=== PATIENT | male | born 1950 | race Caucasian/White ===

== ENCOUNTER 2022-01-03 19:51 | Emergency (ER) | payer OTHER, MEDICAID ==
[~2022-01-03] VITALS: Ht 167.6 cm; Wt 68.0 kg
[~2022-01-03 19:51] MED LIST: LISI20TA31 MT; METF-416 MT; METO-385 MT; OMEP20CA14 MT; SIMV-46 MT
[2022-01-03] MEDS ORDERED: SODIUM CHLORIDE 0.9% 1,000 ML IV ONE (21:15)
[2022-01-03 22:11] LABS: CHLORIDE 100 mEq/L (98-107)
[2022-01-03 22:12] LABS: BASOPHILS % 0.6 % (0.0-2.0); EOSINOPHILS % 4.1 % (0.0-5.0); HEMATOCRIT. 30.6 % (42.0-52.0); LYMPHOCYTES % 7.2 % (20.0-50.0); MEAN CORPUSCULAR HEMOGLOBIN 26.9 pg (28.0-32.0); MEAN CORPUSCULAR VOLUME 82.5 fL (80.0-94.0); MEAN PLATELET VOLUME 9.4 fl (7.4-10.4); MONOCYTES % 10.5 % (2.0-8.0); NEUTROPHILS % 77.6 % (40.0-76.0); PLATELET 80 x1000/uL (130-400); RED BLOOD CELL COUNT 3.71 mill/uL (4.7-6.1); RED CELL DISTRIBUTION WIDTH 17.1 % (11.6-14.6)
[2022-01-03 22:19] LABS: INR 1.1; PARTIAL THROMBOPLASTIN TIME 26.3 sec (23.4-31.0); PROTHROMBIN TIME 12.1 sec (9.6-11.0)
[2022-01-03 22:23] LABS: ETHANOL BLOOD < 10 mg/dL
[2022-01-03 23:19] VITALS: BP 128/61
[2022-01-03 23:26] LABS: CLARITY URINE CLEAR (CLEAR); COLOR URINE YELLOW (YELLOW); KETONES URINE TRACE (NEGATIVE); LEUKOCYTE ESTERASE URINE NEGATIVE (NEGATIVE); NITRITE URINE NEGATIVE (NEGATIVE); OCCULT BLOOD URINE NEGATIVE (NEGATIVE); PH URINE 5.5 (4.5-8.0); PROTEIN URINE TRACE (NEGATIVE); SPECIFIC GRAVITY URINE 1.018 (1.005-1.030); UROBILINOGEN URINE 0.2 E.U./dL (0.2-1.0)
[2022-01-04 00:14] LABS: *AMPHETAMINES SCREEN URINE NEGATIVE (NEGATIVE); *BARBITURATES SCREEN URINE NEGATIVE (NEGATIVE); *BENZODIAZEPINES SCREEN URINE NEGATIVE (NEGATIVE); *COCAINE SCREEN URINE NEGATIVE (NEGATIVE); CANNABINOID URINE SCREEN NEGATIVE (NEGATIVE); METHADONE URINE SCREEN NEGATIVE (NEGATIVE); OPIATES URINE SCREEN NEGATIVE (NEGATIVE); PHENCYCLIDINE URINE SCREEN NEGATIVE (NEGATIVE)
== END 2022-01-04 00:27 | disposition home or self-care (01) ==
LOC: ER 19:51
DX: R55 Syncope and collapse (principal); R42 Dizziness and giddiness; E11.9 Type 2 diabetes mellitus without complications; I10 Essential (primary) hypertension; Z98.890 Other specified postprocedural states
CPT/HCPCS: 36415; 70450; 71045; 80053; 80305; 80320; 81003; 83880; 84484; 85025; 85610; 85730; 93005; 96360; 99285; J7030; G0480

== ENCOUNTER 2022-05-22 15:37 | Inpatient (IN) | payer OTHER, MEDICAID ==
[~2022-05-22] VITALS: Ht 172.7 cm; Wt 75.9 kg
[2022-05-22] MEDS ORDERED: LORAZEPAM 2MG/ML CPJ IV ONE (15:45)
[2022-05-22] MEDS ORDERED: MIDAZOLAM HCL 100 MG in DEXT 5% WATER 80 ML IV ONE (16:15)
[2022-05-22] MEDS ORDERED: MIDAZOLAM HCL 100 MG in SODIUM CHLORIDE 0.9% 100 ML IV PRN (16:30)
[2022-05-22 16:37] LABS: BASOPHILS % 0.2 % (0.0-2.0); EOSINOPHILS % 0.6 % (0.0-5.0); HEMATOCRIT. 42.6 % (42.0-52.0); HEMOGLOBIN. 14.1 g/dL (14.0-18.0); LYMPHOCYTES % 10.2 % (20.0-50.0); MEAN CORPUSCULAR HEMOGLOBIN 35.5 pg (28.0-32.0); MEAN CORPUSCULAR VOLUME 107.3 fL (80.0-94.0); MEAN PLATELET VOLUME 11.7 fl (7.4-10.4); PLATELET 108 x1000/uL (130-400); RED BLOOD CELL COUNT 3.98 mill/uL (4.7-6.1); RED CELL DISTRIBUTION WIDTH 15.1 % (11.6-14.6)
[2022-05-22 17:01] LABS: BG BASE EXCESS -13.9 mmol/L (-2.0-2.0); BG CARBOXYHEMOGLOBIN 1.3 % (0.5-1.5); BG DEOXYHEMOGLOBIN 0.6 % (0.0-5.0); BG FRACTION INSPIRED OXYGEN 60; BG METHEMOGLOBIN 0.3 % (0.0-1.5); BG OXYGEN SATURATION 99.4 % (92.0-98.5); BG OXYHEMOGLOBIN 97.8 % (94.0-97.0); BG PCO2 39.7 mmHg (35.0-45.0); BG PH 7.165 (7.350-7.450); BG PO2 217.3 mmHg (75.0-100.0); BG SAMPLE SITE RIGHT RADIAL; BG TOTAL HEMOGLOBIN 14.5 g/dL (12.0-18.0); BG VENT MODE VENT - AC
[2022-05-22] MEDS ORDERED: LABETALOL 5MG/ML SYR 20 MG/4 ML SYRINGE IV ONE (17:45)
[2022-05-22] MEDS ORDERED: SODIUM BICARBONATE 8.4% 1 MEQ/ML 50ML SYR IV ONE ×2 (17:45)
[2022-05-22] MEDS ORDERED: PROPOFOL 10MG/ML 100ML 100 ML IV ONE (17:45)
[2022-05-22 17:57] LABS: CLARITY URINE CLEAR (CLEAR); COLOR URINE YELLOW (YELLOW); KETONES URINE NEGATIVE (NEGATIVE); LEUKOCYTE ESTERASE URINE NEGATIVE (NEGATIVE); NITRITE URINE NEGATIVE (NEGATIVE); OCCULT BLOOD URINE 3+ (NEGATIVE); PH URINE 5.5 (4.5-8.0); PROTEIN URINE 3+ (NEGATIVE); SPECIFIC GRAVITY URINE 1.019 (1.005-1.030); UROBILINOGEN URINE 0.2 E.U./dL (0.2-1.0)
[2022-05-22 18:01] LABS: CHLORIDE 102 mEq/L (98-107)
[2022-05-22 18:14] LABS: BETA HYDROXYBUTYRATE 0.3 mMol/L (0.0-0.3); ETHANOL BLOOD < 10 mg/dL
[2022-05-22] MEDS ORDERED: INSULIN REGULAR (DRIP) 100 UNITS in SODIUM CHLORIDE 0.9% 99 ML IV SCH (18:30)
[2022-05-22] MEDS ORDERED: IPRATROPIUM/ALBUTEROL 0.5-3(2.5)MG/3ML NEB HHN PRN (19:15)
[2022-05-22] MEDS ORDERED: LEVETIRACETAM 500 MG in SODIUM CHLORIDE 0.9% 100 ML IV SCH (19:15)
[2022-05-22] MEDS ORDERED: ONDANSETRON HCL 4MG/2ML INJ IV PRN (19:15)
[2022-05-22] MEDS ORDERED: CEFTRIAXONE 1 G PREMIX 50 ML IV NR (19:15)
[2022-05-22] MEDS ORDERED: DIPHENHYDRAMINE 50MG/ML VIAL IV PRN (19:15)
[2022-05-22] MEDS ORDERED: LORAZEPAM 2MG/ML CPJ IV PRN (19:15)
[2022-05-22 19:24] LABS: *AMPHETAMINES SCREEN URINE NEGATIVE (NEGATIVE); *BARBITURATES SCREEN URINE NEGATIVE (NEGATIVE); *BENZODIAZEPINES SCREEN URINE NEGATIVE (NEGATIVE); *COCAINE SCREEN URINE NEGATIVE (NEGATIVE); CANNABINOID URINE SCREEN NEGATIVE (NEGATIVE); METHADONE URINE SCREEN NEGATIVE (NEGATIVE); OPIATES URINE SCREEN NEGATIVE (NEGATIVE); PHENCYCLIDINE URINE SCREEN NEGATIVE (NEGATIVE)
[2022-05-22] MEDS: SODIUM CHLORIDE 0.9% 1,000 ML IV SCH ×2 (19:37→23:57)
[2022-05-22 19:40] LABS: CHLORIDE 104 mEq/L (98-107)
[2022-05-22] MEDS: LEVETIRACETAM 500MG PREMIX 100 ML IV SCH (21:58)
[2022-05-23] MEDS ORDERED: PROPOFOL 10MG/ML 100ML 100 ML IV SCH (01:15)
[2022-05-23] MEDS: DEXT 5%/0.45% NACL KCL 20MEQ/L 1,000 ML IV SCH ×3 (01:57→08:32)
[2022-05-23] MEDS: SODIUM CHLORIDE 0.9% 1,000 ML IV SCH ×4 (03:15→12:57)
[2022-05-23 05:20] LABS: BASOPHILS % 0.1 % (0.0-2.0); EOSINOPHILS % 1.5 % (0.0-5.0); HEMATOCRIT. 29.9 % (42.0-52.0); HEMOGLOBIN. 10.6 g/dL (14.0-18.0); LYMPHOCYTES % 7.5 % (20.0-50.0); MEAN CORPUSCULAR HEMOGLOBIN 36.1 pg (28.0-32.0); MEAN CORPUSCULAR VOLUME 102.1 fL (80.0-94.0); MEAN PLATELET VOLUME 10.3 fl (7.4-10.4); MONOCYTES % 11.1 % (2.0-8.0); NEUTROPHILS % 79.8 % (40.0-76.0); RED BLOOD CELL COUNT 2.93 mill/uL (4.7-6.1); RED CELL DISTRIBUTION WIDTH 14.1 % (11.6-14.6)
[2022-05-23 05:24] LABS: CHLORIDE 111 mEq/L (98-107)
[2022-05-23] MEDS ORDERED: INSULIN REGULAR 100U/100ML PMX 100 ML IV SCH ×3 (05:45→06:15)
[2022-05-23 05:48] LABS: PLATELET 47 x1000/uL (130-400)
[2022-05-23] MEDS ORDERED: DEXTROSE 50% WATER 50ML SYRINGE IV PRN ×3 (06:00→12:30)
[2022-05-23] MEDS: BLOOD SUGAR DIAGNOSTIC STRIP TEST SCH ×10 (06:46→21:00)
[2022-05-23] MEDS: LEVETIRACETAM 500MG PREMIX 100 ML IV SCH ×2 (08:51→21:00)
[2022-05-23 10:02] LABS: BG BASE EXCESS -0.8 mmol/L (-2.0-2.0); BG CARBOXYHEMOGLOBIN 0.3 % (0.5-1.5); BG DEOXYHEMOGLOBIN 0.9 % (0.0-5.0); BG FRACTION INSPIRED OXYGEN 60; BG HCO3 ACT 23.4 mmol/L (22.0-26.0); BG METHEMOGLOBIN 0.3 % (0.0-1.5); BG OXYGEN SATURATION 99.1 % (92.0-98.5); BG OXYHEMOGLOBIN 98.5 % (94.0-97.0); BG PCO2 36.8 mmHg (35.0-45.0); BG PH 7.421 (7.350-7.450); BG PO2 211.5 mmHg (75.0-100.0); BG SAMPLE SITE RIGHT RADIAL; BG TOTAL HEMOGLOBIN 11.3 g/dL (12.0-18.0); BG TOTAL RESPIRATORY RATE 12 b/min; BG VENT MODE VENT - AC
[2022-05-23 11:03] LABS: BASOPHILS % 0.4 % (0.0-2.0); EOSINOPHILS % 2.2 % (0.0-5.0); HEMATOCRIT. 33.2 % (42.0-52.0); HEMOGLOBIN. 11.4 g/dL (14.0-18.0); LYMPHOCYTES % 8.8 % (20.0-50.0); MEAN CORPUSCULAR HEMOGLOBIN 35.9 pg (28.0-32.0); MEAN CORPUSCULAR VOLUME 104.3 fL (80.0-94.0); MEAN PLATELET VOLUME 9.8 fl (7.4-10.4); NEUTROPHILS % 76.6 % (40.0-76.0); RED BLOOD CELL COUNT 3.18 mill/uL (4.7-6.1); RED CELL DISTRIBUTION WIDTH 14.3 % (11.6-14.6)
[2022-05-23 11:13] LABS: INR 1.2; PARTIAL THROMBOPLASTIN TIME 23.6 sec (23.4-31.0); PROTHROMBIN TIME 12.4 sec (9.6-11.0)
[2022-05-23 11:20] LABS: CHLORIDE 111 mEq/L (98-107)
[2022-05-23 11:21] LABS: PLATELET 45 x1000/uL (130-400)
[2022-05-23] MEDS ORDERED: OCTREOTIDE 1,000 MCG in SODIUM CHLORIDE 0.9% 98 ML IV PRN ×4 (12:00)
[2022-05-23] MEDS ORDERED: PANTOPRAZOLE 80 MG in SODIUM CHLORIDE 0.9% 100 ML IV SCH (12:00)
[2022-05-23] MEDS: RIFAXIMIN 550 MG TABLET PO SCH ×2 (12:03→21:00)
[2022-05-23] MEDS: PANTOPRAZOLE 80 MG in SODIUM CHLORIDE 0.9% 100 ML IV SCH ×2 (12:03→22:00)
[2022-05-23] MEDS: IPRATROPIUM/ALBUTEROL 0.5-3(2.5)MG/3ML NEB HHN SCH ×2 (12:44→16:25)
[2022-05-23] MEDS ORDERED: OCTREOTIDE 1,000 MCG in SODIUM CHLORIDE 0.9% 98 ML IV SCH (12:45)
[2022-05-23] MEDS ORDERED: LACTULOSE ENEMA 1,000ML BOTTLE PR SCH (13:00)
[2022-05-23] MEDS: CEFEPIME 1,000 MG in DEXTROSE 5% WATER 50 ML IV SCH (13:30)
[2022-05-23] MEDS: INSULIN LISPRO 100 UNITS/ML SUBCUT SCH ×3 (13:40→21:00)
[2022-05-23 15:11] LABS: HEMOGLOBIN 11.8 g/dL (14.0-18.0)
[2022-05-23 15:27] LABS: TOTAL IRON BINDING CAPACITY 393 ug/dL (250-450)
[2022-05-23 15:47] LABS: FERRITIN 86 ng/mL (22-322)
[2022-05-23 15:58] LABS: VITAMIN B12 SERUM 1816 pg/mL (211-911)
[2022-05-23] MEDS ORDERED: NA PHOS,M-B/NA PHOS,DI-BA ENEMA 118ML PR NR (16:00)
[2022-05-23 16:05] LABS: CHLORIDE 111 mEq/L (98-107)
[2022-05-23 16:08] LABS: FOLIC ACID (FOLATE) SERUM > 20.00 ng/mL (>5.38)
[2022-05-23] MEDS ORDERED: FOLIC ACID 1 MG, THIAMINE HCL 100 MG, MVI, ADULT NO.1 10 ML in DEXTROSE 5% WATER 1,000 ML IV ONE ×4 (18:00)
[2022-05-23 18:04] LABS: HEMATOCRIT 35.3 % (42.0-52.0); HEMOGLOBIN 12.2 g/dL (14.0-18.0)
[2022-05-23 18:12] LABS: CHLORIDE 112 mEq/L (98-107)
[2022-05-23] MEDS: ACETAMINOPHEN 325MG TABLET PO PRN (18:25)
[2022-05-23 18:37] LABS: HEPATITIS B SURFACE ANTIGEN NEGATIVE
[2022-05-23] MEDS ORDERED: CEFTRIAXONE 1,000 MG in DEXTROSE 5% WATER 50 ML IV SCH (20:00)
[2022-05-23 20:28] LABS: CHLORIDE 108 mEq/L (98-107)
[2022-05-23] MEDS: LACTULOSE 20G/30ML UDC PO SCH (21:00)
[2022-05-24] VITALS (21 sets, daily range): BP systolic 108–143; BP diastolic 58–100
[2022-05-24 00:25] LABS: HEMATOCRIT 32.2 % (42.0-52.0); HEMOGLOBIN 11.2 g/dL (14.0-18.0)
[2022-05-24] MEDS: PROPOFOL 10MG/ML 100ML 100 ML IV SCH ×2 (00:43→22:39)
[2022-05-24] MEDS: CEFEPIME 1,000 MG in DEXTROSE 5% WATER 50 ML IV SCH (01:00)
[2022-05-24] MEDS: SODIUM CHLORIDE 0.9% 1,000 ML IV SCH ×2 (01:15→13:45)
[2022-05-24 06:22] LABS: HEMATOCRIT 33.8 % (42.0-52.0); HEMOGLOBIN 11.7 g/dL (14.0-18.0)
[2022-05-24] MEDS: BLOOD SUGAR DIAGNOSTIC STRIP TEST SCH ×5 (06:48→21:00)
[2022-05-24] MEDS: INSULIN LISPRO 100 UNITS/ML SUBCUT SCH ×5 (06:57→23:41)
[2022-05-24] MEDS: PROPOFOL 10MG/ML 100ML 100 ML IV PRN (07:38)
[2022-05-24] MEDS: IPRATROPIUM/ALBUTEROL 0.5-3(2.5)MG/3ML NEB HHN SCH ×4 (08:30→20:24)
[2022-05-24 08:31] LABS: BG BASE EXCESS -0.2 mmol/L (-2.0-2.0); BG CARBOXYHEMOGLOBIN 0.8 % (0.5-1.5); BG DEOXYHEMOGLOBIN 1.1 % (0.0-5.0); BG FRACTION INSPIRED OXYGEN 40; BG HCO3 ACT 22.8 mmol/L (22.0-26.0); BG METHEMOGLOBIN 0.2 % (0.0-1.5); BG OXYGEN SATURATION 98.9 % (92.0-98.5); BG OXYHEMOGLOBIN 97.9 % (94.0-97.0); BG PO2 131.1 mmHg (75.0-100.0); BG SAMPLE SITE RIGHT RADIAL; BG TOTAL HEMOGLOBIN 12.5 g/dL (12.0-18.0); BG TOTAL RESPIRATORY RATE 13 b/min; BG VENT MODE VENT - AC
[2022-05-24] MEDS: PANTOPRAZOLE 80 MG in SODIUM CHLORIDE 0.9% 100 ML IV SCH (08:36)
[2022-05-24] MEDS: OCTREOTIDE 1,000 MCG in SODIUM CHLORIDE 0.9% 98 ML IV SCH (08:36)
[2022-05-24] MEDS: RIFAXIMIN 550 MG TABLET PO SCH ×2 (09:00→22:41)
[2022-05-24] MEDS: AMLODIPINE 5MG TABLET PO SCH (09:00)
[2022-05-24] MEDS: CARVEDILOL 3.125 MG TABLET PO SCH ×2 (09:00→22:41)
[2022-05-24] MEDS: LEVETIRACETAM 500MG PREMIX 100 ML IV SCH ×2 (09:47→22:45)
[2022-05-24] MEDS: PANTOPRAZOLE SODIUM 40 MG/VIAL IV SCH ×2 (10:00→17:56)
[2022-05-24] MEDS ORDERED: LACTULOSE ENEMA 1,000ML BOTTLE PR NR (11:00)
[2022-05-24] MEDS ORDERED: CEFEPIME 1,000 MG in DEXTROSE 5% WATER 50 ML IV SCH (17:00)
[2022-05-24 20:53] LABS: HEMATOCRIT 33.2 % (42.0-52.0); HEMOGLOBIN 11.5 g/dL (14.0-18.0)
[2022-05-24] MEDS: LACTULOSE 20G/30ML UDC PO SCH (22:45)
[2022-05-24] MEDS: ACETAMINOPHEN 325MG TABLET PO PRN (23:37)
[2022-05-25] VITALS (86 sets, daily range): BP systolic 86–164; BP diastolic 55–94
[2022-05-25] MEDS: IPRATROPIUM/ALBUTEROL 0.5-3(2.5)MG/3ML NEB HHN SCH ×6 (00:19→21:06)
[2022-05-25] MEDS: OCTREOTIDE 1,000 MCG in SODIUM CHLORIDE 0.9% 98 ML IV SCH ×2 (03:50→20:26)
[2022-05-25] MEDS ORDERED: NOREPINEPHRINE 8 MG in DEXT 5% WATER 242 ML IV PRN (05:00)
[2022-05-25] MEDS: PROPOFOL 10MG/ML 100ML 100 ML IV PRN ×2 (05:06→10:47)
[2022-05-25 05:37] LABS: BASOPHILS % 0.1 % (0.0-2.0); HEMATOCRIT. 31.9 % (42.0-52.0); HEMOGLOBIN. 11.1 g/dL (14.0-18.0); LYMPHOCYTES % 7.2 % (20.0-50.0); MEAN CORPUSCULAR HEMOGLOBIN 36.3 pg (28.0-32.0); MEAN CORPUSCULAR VOLUME 104.2 fL (80.0-94.0); MEAN PLATELET VOLUME 9.9 fl (7.4-10.4); MONOCYTES % 12.3 % (2.0-8.0); NEUTROPHILS % 76.4 % (40.0-76.0); PLATELET 52 x1000/uL (130-400); RED BLOOD CELL COUNT 3.06 mill/uL (4.7-6.1); RED CELL DISTRIBUTION WIDTH 13.7 % (11.6-14.6)
[2022-05-25 06:49] LABS: CHLORIDE 109 mEq/L (98-107)
[2022-05-25] MEDS: SODIUM CHLORIDE 0.9% 1,000 ML IV SCH ×3 (06:50→20:26)
[2022-05-25] MEDS: BLOOD SUGAR DIAGNOSTIC STRIP TEST SCH ×4 (07:50→23:35)
[2022-05-25] MEDS: INSULIN LISPRO 100 UNITS/ML SUBCUT SCH ×4 (08:20→23:59)
[2022-05-25] MEDS: FOLIC ACID 1MG TABLET PO SCH (08:57)
[2022-05-25] MEDS: MULTIVITAMINS,THER W-MINERALS TABLET PO SCH (08:57)
[2022-05-25] MEDS: PANTOPRAZOLE SODIUM 40 MG/VIAL IV SCH ×2 (08:57→17:40)
[2022-05-25] MEDS: RIFAXIMIN 550 MG TABLET PO SCH ×2 (08:58→20:26)
[2022-05-25] MEDS: AMLODIPINE 5MG TABLET PO SCH (08:58)
[2022-05-25] MEDS: THIAMINE HCL 100MG TABLET PO SCH (08:58)
[2022-05-25 09:16] LABS: BG BASE EXCESS -3.6 mmol/L (-2.0-2.0); BG CARBOXYHEMOGLOBIN 0.4 % (0.5-1.5); BG FRACTION INSPIRED OXYGEN 35; BG HCO3 ACT 20.9 mmol/L (22.0-26.0); BG METHEMOGLOBIN 0.1 % (0.0-1.5); BG OXYHEMOGLOBIN 96.5 % (94.0-97.0); BG PCO2 36.1 mmHg (35.0-45.0); BG PH 7.381 (7.350-7.450); BG PO2 97.3 mmHg (75.0-100.0); BG SAMPLE SITE RIGHT RADIAL; BG TOTAL HEMOGLOBIN 12.4 g/dL (12.0-18.0); BG VENT MODE VENT - AC
[2022-05-25] MEDS: LEVETIRACETAM 500MG PREMIX 100 ML IV SCH ×2 (10:47→20:26)
[2022-05-25] MEDS: CARVEDILOL 3.125 MG TABLET PO SCH ×2 (10:47→20:27)
[2022-05-25] MEDS: CEFEPIME 1,000 MG in DEXTROSE 5% WATER 50 ML IV SCH ×2 (10:48→20:26)
[2022-05-25] MEDS: LACTULOSE 20G/30ML UDC PO SCH (20:26)
[2022-05-25] MEDS: ACETAMINOPHEN 325MG TABLET PO PRN (20:27)
[2022-05-26] VITALS (51 sets, daily range): BP systolic 105–162; BP diastolic 62–86
[2022-05-26] MEDS: IPRATROPIUM/ALBUTEROL 0.5-3(2.5)MG/3ML NEB HHN SCH ×5 (00:17→20:48)
[2022-05-26] MEDS: INSULIN LISPRO 100 UNITS/ML SUBCUT SCH ×3 (06:00→20:00)
[2022-05-26] MEDS: BLOOD SUGAR DIAGNOSTIC STRIP TEST SCH ×3 (06:21→20:00)
[2022-05-26] MEDS: PROPOFOL 10MG/ML 100ML 100 ML IV PRN (06:45)
[2022-05-26 08:48] LABS: BG BASE EXCESS -3.7 mmol/L (-2.0-2.0); BG CARBOXYHEMOGLOBIN 0.3 % (0.5-1.5); BG DEOXYHEMOGLOBIN 2.6 % (0.0-5.0); BG FRACTION INSPIRED OXYGEN 35; BG HCO3 ACT 21.3 mmol/L (22.0-26.0); BG METHEMOGLOBIN 0.3 % (0.0-1.5); BG OXYGEN SATURATION 97.4 % (92.0-98.5); BG OXYHEMOGLOBIN 96.8 % (94.0-97.0); BG PCO2 38.1 mmHg (35.0-45.0); BG PH 7.365 (7.350-7.450); BG SAMPLE SITE RIGHT RADIAL; BG TOTAL HEMOGLOBIN 10.8 g/dL (12.0-18.0); BG VENT MODE VENT - AC
[2022-05-26] MEDS: LEVETIRACETAM 500MG PREMIX 100 ML IV SCH ×2 (09:12→20:10)
[2022-05-26] MEDS: CARVEDILOL 3.125 MG TABLET PO SCH ×2 (09:13→20:11)
[2022-05-26] MEDS: THIAMINE HCL 100MG TABLET PO SCH (09:13)
[2022-05-26] MEDS: MULTIVITAMINS,THER W-MINERALS TABLET PO SCH (09:13)
[2022-05-26] MEDS: AMLODIPINE 5MG TABLET PO SCH (09:13)
[2022-05-26] MEDS: PANTOPRAZOLE SODIUM 40 MG/VIAL IV SCH ×2 (09:13→20:10)
[2022-05-26] MEDS: SODIUM CHLORIDE 0.9% 1,000 ML IV SCH (09:13)
[2022-05-26] MEDS: FOLIC ACID 1MG TABLET PO SCH (09:13)
[2022-05-26] MEDS: RIFAXIMIN 550 MG TABLET PO SCH ×2 (09:13→20:11)
[2022-05-26] MEDS: CEFEPIME 1,000 MG in DEXTROSE 5% WATER 50 ML IV SCH ×2 (09:16→20:10)
[2022-05-26 11:11] LABS: BASOPHILS % 0.6 % (0.0-2.0); EOSINOPHILS % 7.2 % (0.0-5.0); HEMATOCRIT. 34.3 % (42.0-52.0); HEMOGLOBIN. 11.7 g/dL (14.0-18.0); LYMPHOCYTES % 9.4 % (20.0-50.0); MEAN CORPUSCULAR HEMOGLOBIN 35.6 pg (28.0-32.0); MEAN CORPUSCULAR VOLUME 104.4 fL (80.0-94.0); MEAN PLATELET VOLUME 10.7 fl (7.4-10.4); MONOCYTES % 11.5 % (2.0-8.0); NEUTROPHILS % 71.3 % (40.0-76.0); PLATELET 63 x1000/uL (130-400); RED BLOOD CELL COUNT 3.29 mill/uL (4.7-6.1); RED CELL DISTRIBUTION WIDTH 13.9 % (11.6-14.6)
[2022-05-26] MEDS: OCTREOTIDE 1,000 MCG in SODIUM CHLORIDE 0.9% 98 ML IV SCH ×2 (11:29→15:15)
[2022-05-26 17:56] LABS: BG BASE EXCESS -3.2 mmol/L (-2.0-2.0); BG CARBOXYHEMOGLOBIN 0.3 % (0.5-1.5); BG DEOXYHEMOGLOBIN 2.3 % (0.0-5.0); BG FRACTION INSPIRED OXYGEN 35; BG HCO3 ACT 21.2 mmol/L (22.0-26.0); BG METHEMOGLOBIN 0.2 % (0.0-1.5); BG OXYGEN SATURATION 97.7 % (92.0-98.5); BG OXYHEMOGLOBIN 97.2 % (94.0-97.0); BG PCO2 35.9 mmHg (35.0-45.0); BG PH 7.389 (7.350-7.450); BG PO2 107.5 mmHg (75.0-100.0); BG SAMPLE SITE RIGHT RADIAL; BG TOTAL HEMOGLOBIN 11.8 g/dL (12.0-18.0); BG VENT MODE VENT - CPAP
[2022-05-26] MEDS: LACTULOSE 20G/30ML UDC PO SCH (20:10)
[2022-05-26 22:36] LABS: BG BASE EXCESS -1.3 mmol/L (-2.0-2.0); BG CARBOXYHEMOGLOBIN 0.6 % (0.5-1.5); BG FRACTION INSPIRED OXYGEN 32; BG HCO3 ACT 23.6 mmol/L (22.0-26.0); BG METHEMOGLOBIN 0.3 % (0.0-1.5); BG OXYHEMOGLOBIN 97.1 % (94.0-97.0); BG PCO2 40.5 mmHg (35.0-45.0); BG PH 7.384 (7.350-7.450); BG PO2 111.7 mmHg (75.0-100.0); BG TOTAL HEMOGLOBIN 12.8 g/dL (12.0-18.0); BG VENT MODE NASAL CANNULA
[2022-05-26] MEDS: CLONIDINE 0.1MG TABLET PO PRN (22:52)
[2022-05-27] VITALS (52 sets, daily range): BP systolic 137–171; BP diastolic 65–89
[2022-05-27] MEDS: IPRATROPIUM/ALBUTEROL 0.5-3(2.5)MG/3ML NEB HHN SCH ×3 (00:41→08:29)
[2022-05-27] MEDS: SODIUM CHLORIDE 0.9% 1,000 ML IV SCH ×2 (04:26→16:02)
[2022-05-27] MEDS: BLOOD SUGAR DIAGNOSTIC STRIP TEST SCH ×5 (05:39→23:19)
[2022-05-27] MEDS: INSULIN LISPRO 100 UNITS/ML SUBCUT SCH ×5 (05:40→23:20)
[2022-05-27 05:41] LABS: BASOPHILS % 0.6 % (0.0-2.0); HEMATOCRIT. 32.6 % (42.0-52.0); HEMOGLOBIN. 11.2 g/dL (14.0-18.0); LYMPHOCYTES % 11.8 % (20.0-50.0); MEAN CORPUSCULAR HEMOGLOBIN 35.5 pg (28.0-32.0); MEAN CORPUSCULAR VOLUME 103.5 fL (80.0-94.0); MEAN PLATELET VOLUME 9.2 fl (7.4-10.4); NEUTROPHILS % 69.6 % (40.0-76.0); PLATELET 73 x1000/uL (130-400); RED BLOOD CELL COUNT 3.15 mill/uL (4.7-6.1); RED CELL DISTRIBUTION WIDTH 13.5 % (11.6-14.6)
[2022-05-27] MEDS: CLONIDINE 0.1MG TABLET PO PRN (05:46)
[2022-05-27 05:58] LABS: CHLORIDE 111 mEq/L (98-107)
[2022-05-27] MEDS: FOLIC ACID 1MG TABLET PO SCH (08:59)
[2022-05-27] MEDS: AMLODIPINE 5MG TABLET PO SCH (08:59)
[2022-05-27] MEDS: CARVEDILOL 3.125 MG TABLET PO SCH ×2 (08:59→20:49)
[2022-05-27] MEDS: MULTIVITAMINS,THER W-MINERALS TABLET PO SCH (08:59)
[2022-05-27] MEDS: THIAMINE HCL 100MG TABLET PO SCH (08:59)
[2022-05-27] MEDS: PANTOPRAZOLE SODIUM 40 MG/VIAL IV SCH ×2 (08:59→17:04)
[2022-05-27] MEDS: RIFAXIMIN 550 MG TABLET PO SCH ×2 (08:59→20:46)
[2022-05-27] MEDS: LEVETIRACETAM 500MG PREMIX 100 ML IV SCH ×2 (09:00→22:13)
[2022-05-27] MEDS: CEFEPIME 1,000 MG in DEXTROSE 5% WATER 50 ML IV SCH ×2 (09:00→22:13)
[2022-05-27] MEDS: OCTREOTIDE 1,000 MCG in SODIUM CHLORIDE 0.9% 98 ML IV SCH (15:11)
[2022-05-27] MEDS ORDERED: ALBUTEROL (0.083%) 2.5MG/3ML NEB HHN PRN (17:30)
[2022-05-27] MEDS ORDERED: IPRATROPIUM BROMIDE (0.02%) 0.5MG/2.5ML NEB HHN PRN (17:30)
[2022-05-27] MEDS ORDERED: ACETAMINOPHEN 325MG TABLET PO PRN (18:45)
[2022-05-27] MEDS: LACTULOSE 20G/30ML UDC PO SCH (20:46)
[2022-05-28] VITALS (12 sets, daily range): BP systolic 126–153; BP diastolic 62–83
[2022-05-28] MEDS: SODIUM CHLORIDE 0.9% 1,000 ML IV SCH (04:47)
[2022-05-28] MEDS: BLOOD SUGAR DIAGNOSTIC STRIP TEST SCH ×3 (05:47→17:11)
[2022-05-28] MEDS: INSULIN LISPRO 100 UNITS/ML SUBCUT SCH ×3 (05:47→17:27)
[2022-05-28 06:50] LABS: HEMATOCRIT. 30.4 % (42.0-52.0); HEMOGLOBIN. 10.6 g/dL (14.0-18.0); MEAN CORPUSCULAR HEMOGLOBIN 35.3 pg (28.0-32.0); MEAN CORPUSCULAR VOLUME 101.4 fL (80.0-94.0); MEAN PLATELET VOLUME 9.3 fl (7.4-10.4); PLATELET 68 x1000/uL (130-400); RED CELL DISTRIBUTION WIDTH 13.1 % (11.6-14.6)
[2022-05-28 07:26] LABS: CHLORIDE 110 mEq/L (98-107)
[2022-05-28] MEDS: PANTOPRAZOLE SODIUM 40 MG/VIAL IV SCH ×2 (08:13→17:10)
[2022-05-28] MEDS: MULTIVITAMINS,THER W-MINERALS TABLET PO SCH ×2 (08:13→08:16)
[2022-05-28] MEDS: RIFAXIMIN 550 MG TABLET PO SCH (08:13)
[2022-05-28] MEDS: THIAMINE HCL 100MG TABLET PO SCH ×2 (08:15→08:16)
[2022-05-28] MEDS: FOLIC ACID 1MG TABLET PO SCH (08:16)
[2022-05-28] MEDS: AMLODIPINE 5MG TABLET PO SCH (08:18)
[2022-05-28] MEDS: CARVEDILOL 3.125 MG TABLET PO SCH ×2 (08:21→21:13)
[2022-05-28] MEDS: CEFEPIME 1,000 MG in DEXTROSE 5% WATER 50 ML IV SCH ×2 (09:45→20:30)
[2022-05-28] MEDS: LEVETIRACETAM 500MG PREMIX 100 ML IV SCH ×2 (09:45→20:30)
[2022-05-28] MEDS ORDERED: POTASSIUM CHLORIDE 20MEQ/PACKET PO NR (10:15)
[2022-05-28 18:00] LABS: PLATELET ESTIMATE DECREASED
[2022-05-28] MEDS: LACTULOSE 20G/30ML UDC PO SCH (22:19)
[2022-05-29] VITALS (11 sets, daily range): BP systolic 128–177; BP diastolic 58–92
[2022-05-29] MEDS: BLOOD SUGAR DIAGNOSTIC STRIP TEST SCH ×5 (00:23→23:27)
[2022-05-29] MEDS ORDERED: DEXT 5%/0.9% NACL 1,000 ML IV SCH (03:00)
[2022-05-29 03:26] LABS: BASOPHILS % 0.7 % (0.0-2.0); EOSINOPHILS % 8.7 % (0.0-5.0); HEMATOCRIT. 31.9 % (42.0-52.0); HEMOGLOBIN. 11.1 g/dL (14.0-18.0); LYMPHOCYTES % 9.2 % (20.0-50.0); MEAN CORPUSCULAR HEMOGLOBIN 35.3 pg (28.0-32.0); MEAN PLATELET VOLUME 8.8 fl (7.4-10.4); MONOCYTES % 11.9 % (2.0-8.0); NEUTROPHILS % 69.5 % (40.0-76.0); PLATELET 75 x1000/uL (130-400); RED BLOOD CELL COUNT 3.16 mill/uL (4.7-6.1); RED CELL DISTRIBUTION WIDTH 12.9 % (11.6-14.6)
[2022-05-29 03:27] LABS: INR 1.2; PROTHROMBIN TIME 12.5 sec (9.6-11.0)
[2022-05-29] MEDS: INSULIN LISPRO 100 UNITS/ML SUBCUT SCH ×5 (05:26→23:26)
[2022-05-29] MEDS ORDERED: POTASSIUM CHLORIDE INJ 40 MEQ in DEXT 5% WATER 250 ML IV ONE (06:45)
[2022-05-29] MEDS: PANTOPRAZOLE SODIUM 40 MG/VIAL IV SCH ×2 (08:14→16:49)
[2022-05-29] MEDS: CEFEPIME 1,000 MG in DEXTROSE 5% WATER 50 ML IV SCH ×2 (08:14→20:31)
[2022-05-29] MEDS: LEVETIRACETAM 500MG PREMIX 100 ML IV SCH ×2 (08:14→20:31)
[2022-05-29] MEDS: AMLODIPINE 5MG TABLET PO SCH (08:15)
[2022-05-29] MEDS: MULTIVITAMINS,THER W-MINERALS TABLET PO SCH (08:15)
[2022-05-29] MEDS: FOLIC ACID 1MG TABLET PO SCH (08:15)
[2022-05-29] MEDS: CARVEDILOL 3.125 MG TABLET PO SCH ×2 (08:15→20:31)
[2022-05-29] MEDS: THIAMINE HCL 100MG TABLET PO SCH (08:15)
[2022-05-29] MEDS: KCL 20MEQ/100ML X 2 FOR TOTAL KCL 40MEQ/200ML IV NR ×2 (09:52→11:27)
[2022-05-29] MEDS ORDERED: PROPOFOL 200MG/20ML VIAL IV ONE (13:40)
[2022-05-29] MEDS: LACTULOSE 20G/30ML UDC PO SCH (20:31)
[2022-05-29] MEDS: ACETAMINOPHEN 325MG TABLET PO PRN (23:26)
[2022-05-30] VITALS (11 sets, daily range): BP systolic 108–158; BP diastolic 60–82
[2022-05-30] MEDS: INSULIN LISPRO 100 UNITS/ML SUBCUT SCH ×3 (05:13→17:48)
[2022-05-30] MEDS: BLOOD SUGAR DIAGNOSTIC STRIP TEST SCH ×3 (05:13→17:16)
[2022-05-30] MEDS: FOLIC ACID 1MG TABLET PO SCH (08:49)
[2022-05-30] MEDS: CARVEDILOL 3.125 MG TABLET PO SCH ×2 (08:49→20:28)
[2022-05-30] MEDS: PANTOPRAZOLE SODIUM 40 MG/VIAL IV SCH ×2 (08:49→17:47)
[2022-05-30] MEDS: LEVETIRACETAM 500MG PREMIX 100 ML IV SCH ×2 (08:49→20:28)
[2022-05-30] MEDS: AMLODIPINE 5MG TABLET PO SCH (08:49)
[2022-05-30] MEDS: THIAMINE HCL 100MG TABLET PO SCH (08:50)
[2022-05-30] MEDS: MULTIVITAMINS,THER W-MINERALS TABLET PO SCH (08:50)
[2022-05-30] MEDS ORDERED: POTASSIUM CHLORIDE 20MEQ TABLET SR PO NR (09:00)
[2022-05-30 10:03] LABS: HEMATOCRIT. 33.5 % (42.0-52.0); HEMOGLOBIN. 11.7 g/dL (14.0-18.0); MEAN CORPUSCULAR HEMOGLOBIN 35.3 pg (28.0-32.0); MEAN CORPUSCULAR VOLUME 101.4 fL (80.0-94.0); MEAN PLATELET VOLUME 10.2 fl (7.4-10.4); PLATELET 92 x1000/uL (130-400); RED BLOOD CELL COUNT 3.31 mill/uL (4.7-6.1); RED CELL DISTRIBUTION WIDTH 12.8 % (11.6-14.6)
[2022-05-30 10:53] LABS: PLATELET ESTIMATE DECREASED
[2022-05-30] MEDS ORDERED: AMLO5TAB88 PO (12:37)
[2022-05-30] MEDS ORDERED: COR3 PO (12:37)
[2022-05-30] MEDS: LACTULOSE 20G/30ML UDC PO SCH (20:28)
[2022-05-31] VITALS (9 sets, daily range): BP systolic 109–164; BP diastolic 71–84
[2022-05-31] MEDS: INSULIN LISPRO 100 UNITS/ML SUBCUT SCH ×3 (06:00→12:51)
[2022-05-31] MEDS: BLOOD SUGAR DIAGNOSTIC STRIP TEST SCH ×3 (06:35→12:42)
[2022-05-31 07:35] LABS: BASOPHILS % 0.6 % (0.0-2.0); EOSINOPHILS % 7.3 % (0.0-5.0); HEMATOCRIT. 31.7 % (42.0-52.0); HEMOGLOBIN. 11.2 g/dL (14.0-18.0); LYMPHOCYTES % 8.7 % (20.0-50.0); MEAN CORPUSCULAR HEMOGLOBIN 35.2 pg (28.0-32.0); MEAN CORPUSCULAR VOLUME 99.8 fL (80.0-94.0); MEAN PLATELET VOLUME 9.1 fl (7.4-10.4); MONOCYTES % 10.8 % (2.0-8.0); NEUTROPHILS % 72.6 % (40.0-76.0); PLATELET 77 x1000/uL (130-400); RED BLOOD CELL COUNT 3.18 mill/uL (4.7-6.1)
[2022-05-31 07:55] LABS: CHLORIDE 102 mEq/L (98-107)
[2022-05-31] MEDS: MULTIVITAMINS,THER W-MINERALS TABLET PO SCH (08:46)
[2022-05-31] MEDS: LEVETIRACETAM 500MG PREMIX 100 ML IV SCH (08:46)
[2022-05-31] MEDS: THIAMINE HCL 100MG TABLET PO SCH (08:46)
[2022-05-31] MEDS: AMLODIPINE 5MG TABLET PO SCH (08:46)
[2022-05-31] MEDS: PANTOPRAZOLE SODIUM 40 MG/VIAL IV SCH (08:47)
[2022-05-31] MEDS: CARVEDILOL 3.125 MG TABLET PO SCH (08:47)
[2022-05-31] MEDS: FOLIC ACID 1MG TABLET PO SCH (08:47)
[2022-05-31] MEDS ORDERED: POTASSIUM CHLORIDE 20MEQ TABLET SR PO NR (09:00)
== END 2022-05-31 17:22 | disposition home health service (06) | DRG 100 ==
LOC: ER 15:37 → MICUSO 18:02 → EDBEDREQSVC 18:03 → EDBEDREQ 18:03 → EDBEDREQTM 18:03 → CVICU 05-24 12:36 → 5EST 05-27 17:15
PROVIDERS: ADMIT Internal Medicine; ATTEND Internal Medicine
PROC: 5A1955Z Respiratory Ventilation, Greater than 96 Consecutive Hours (ICD-10-PCS; principal; 2022-05-22)
PROC: 0BH17EZ Insertion of Endotracheal Airway into Trachea, Via Natural or Artificial Opening (ICD-10-PCS; 2022-05-22)
PROC: 0DB78ZX Excision of Stomach, Pylorus, Via Natural or Artificial Opening Endoscopic, Diagnostic (ICD-10-PCS; 2022-05-22)
PROC: 02HV33Z Insertion of Infusion Device into Superior Vena Cava, Percutaneous Approach (ICD-10-PCS; 2022-05-23)
PROC: B548ZZA Ultrasonography of Superior Vena Cava, Guidance (ICD-10-PCS; 2022-05-23)
DX: G40.901 Epilepsy, unspecified, not intractable, with status epilepticus (principal); E11.10 Type 2 diabetes mellitus with ketoacidosis without coma; J96.00 Acute respiratory failure, unspecified whether with hypoxia or hypercapnia; G92.8 Other toxic encephalopathy; I85.11 Secondary esophageal varices with bleeding; I16.1 Hypertensive emergency; K76.6 Portal hypertension; E44.0 Moderate protein-calorie malnutrition; N17.9 Acute kidney failure, unspecified; E72.20 Disorder of urea cycle metabolism, unspecified; K74.60 Unspecified cirrhosis of liver; K76.82 Hepatic encephalopathy; D69.6 Thrombocytopenia, unspecified; I10 Essential (primary) hypertension; E88.09 Other disorders of plasma-protein metabolism, not elsewhere classified; E87.6 Hypokalemia; E78.5 Hyperlipidemia, unspecified; E61.1 Iron deficiency; R13.12 Dysphagia, oropharyngeal phase; D72.829 Elevated white blood cell count, unspecified; Z20.822 Contact with and (suspected) exposure to COVID-19; K31.89 Other diseases of stomach and duodenum; R16.1 Splenomegaly, not elsewhere classified; D72.821 Monocytosis (symptomatic); F10.10 Alcohol abuse, uncomplicated; Z78.1 Physical restraint status; Z85.46 Personal history of malignant neoplasm of prostate; Z95.1 Presence of aortocoronary bypass graft; Z95.2 Presence of prosthetic heart valve; Z79.84 Long term (current) use of oral hypoglycemic drugs
CPT/HCPCS: 31500; 36415; 36573; 36600; 70551; 71045; 76700; 80048; 80053; 80061; 80074; 80305; 80307; 80320; 80329; 81003; 82010; 82040; 82140; 82375; 82550; 82607; 82728; 82746; 82805; 82962; 83036; 83605; 83880; 84134; 84145; 84478; 84484; 85014; 85018; 85025; 85044; 85049; 85384; 87070; 87426; 88305; 93005; 93306; 93970; 94002; 94003; 94640; 97162; 97530; 99291; C1725; C1769; C9113; J0692; J0696; J1200; J1815; J1953; J2060; J2250; J2354; J2704; J3411; J3480; J3490; J7042; J7050; J7060; J7070; G0480